=== PATIENT | female | born 1990 | race Caucasian/White ===

== ENCOUNTER → 2021-12-24 | Outpatient (CLI) | payer OTHER ==
--- NOTE | 2021-12-24 18:26 | Diagnostic Imaging Report ---
EXAMINATION: Chest 1 view HISTORY: POSITIVE TB TEST COMPARISON: None available. FINDINGS: Heart size and pulmonary vasculature are normal. The lungs are clear without consolidation, pleural effusion, or pneumothorax. The osseous structures are intact. IMPRESSION: 1. No acute radiographic abnormality in the chest. Dictated by: Dictated on workstation # [id number]
== END ==
LOC: RAD 17:30
PROVIDERS: ATTEND Nurse Practitioner Family
DX: Z11.1 Encounter for screening for respiratory tuberculosis (principal); R76.11 Nonspecific reaction to tuberculin skin test without active tuberculosis
CPT/HCPCS: 71045

== ENCOUNTER 2022-08-11 14:03 | Emergency (ER) | payer OTHER ==
[~2022-08-11] VITALS: Ht 167.7 cm; Wt 73.0 kg
--- NOTE | 2022-08-11 14:16 | ED Lower Extremity ---
General Stated Complaint: FALL/RIGHT ANKLE INJURY Source: patient Exam Limitations: no limitations History of Present Illness Date Seen by Provider: Aug 11, 2022 Time Seen by Provider: 14:06 Initial Comments 31-year-old female presents the emergency department today for right ankle pain. She was walking and stepped in a hole that she did not see. She has pain in the medial lateral right ankle as well as her proximal right tib-fib region. No other injuries. Pain is dull throbbing worse with weightbearing and movement. Relieved by rest. She took Advil prior to arrival. Allergies and Home Medications Patient Home Medication List Home Medication List Reviewed: Yes Review of Systems Constitutional: no symptoms reported EENTM: no symptoms reported Respiratory: no symptoms reported Cardiovascular: no symptoms reported Gastrointestinal: no symptoms reported Genitourinary: no symptoms reported Musculoskeletal: joint pain Skin: no symptoms reported Psychiatric/Neurological: No Symptoms Reported Past Azfjrnq-Djvtoi-Bxncfv Hx Patient Social History Tobacco Use?: No Use of E-Cig and/or Vaping dev: No Substance use?: No Alcohol Use?: No Family Medical History Reviewed Nursing Family Hx No Pertinent Family Hx Physical Exam Vital Signs Vital Signs - First Documented 08/11/22 14:10 Temp 36.2 Pulse 58 Resp 16 B/P (MAP) 113/75 (88) Pulse Ox 99 O2 Delivery Room Air Capillary Refill : Height, Weight, BMI Height: '" Weight: lbs. oz. kg; BMI Method: General Appearance: WD/WN, no apparent distress HEENT: normal ENT inspection, pharynx normal Neck: non-tender, full range of motion, supple, normal inspection Cardiovascular: regular rate, rhythm, no edema, no gallop, no JVD, no murmur Respiratory: chest non-tender, lungs clear, normal breath sounds, no respiratory distress, no accessory muscle use Gastrointestinal: normal bowel sounds, non tender, soft, no organomegaly, no pulsatile mass Back: normal inspection, no CVA tenderness, no vertebral tenderness Legs: bilateral leg normal inspection, bilateral leg normal range of motion, bilateral leg no evidence of injury; right leg pain (Tenderness palpation right proximal fibular region. No obvious deformity. Neurovascular motor and sensory intact.) Knees: bilateral knee non-tender, bilateral knee normal inspection, bilateral knee normal range of motion Ankles: right ankle pain (Tenderness palpation right ankle medial and lateral malleolus. No obvious deformity. Neurovascular motor and sensory intact.) Feet: bilateral foot non-tender, bilateral foot normal inspection, bilateral foot normal range of motion, bilateral foot no evidence of injury Neurologic/Psychiatric: no motor/sensory deficits, alert, normal mood/affect, oriented x 3 Skin: normal color, warm/dry Progress/Results/Core Measures Results/Orders My Orders Orders - OBDULIA SONI DO Ankle, Right, 3 Views (08/11/22 14:12) Tibia/Fibula, Right, 2 Views (08/11/22 14:12) Vital Signs/I&O 08/11/22 08/11/22 14:10 14:33 Temp 36.2 Pulse 58 58 Resp 16 16 B/P (MAP) 113/75 (88) 113/75 Pulse Ox 99 99 O2 Delivery Room Air Room Air Departure Communication (Admissions) Patient declines crutches. Discharged in stable condition with supportive care Impression Primary Impression: Right ankle sprain Qualified Codes: S93.401A - Sprain of unspecified ligament of right ankle, initial encounter Disposition: 01 HOME, SELF-CARE Condition: Stable Departure-Patient Inst. Referrals: [facility] (PCP/Family) Primary Care Physician Patient Instructions: Ankle Sprain ED Add. Discharge Instructions: Ice the ankle and elevated. Use Advil and Tylenol as needed for pain. Return to the emergency department for any severe concerns. OBDULIA SONI DO Aug 11, 2022 14:16
[2022-08-11 14:33] VITALS: BP 113/75
--- NOTE | 2022-08-11 14:33 | Diagnostic Imaging Report ---
EXAMINATION: Right ankle radiographs, 3 views. COMPARISON: None. HISTORY: 31-year-old female, right ankle pain after twisting injury. FINDINGS: There is no identified acute fracture. The alignment of the ankle mortise is unremarkable. There is no tibiotalar joint effusion. There is no radiopaque foreign body. Joint spaces are well preserved. IMPRESSION: Unremarkable radiographs of the right ankle. Dictated by: Dictated on workstation # [id number]
--- NOTE | 2022-08-11 14:42 | Diagnostic Imaging Report ---
EXAMINATION: Right tibia and fibular radiographs, 2 views. COMPARISON: None. HISTORY: 31-year-old female, right tibia and fibula pain. Injury. FINDINGS: There is no identified acute fracture. There is no identified radiopaque foreign body. IMPRESSION: Unremarkable radiographs of the right tibia and fibula. Dictated by: Dictated on workstation # [id number]
== END 2022-08-11 14:33 | disposition home or self-care (01) ==
LOC: EDUNIT# 14:03 → ER 14:06
DX: S93.401A Sprain of unspecified ligament of right ankle, initial encounter (principal); W17.2XXA Fall into hole, initial encounter; Y93.01 Activity, walking, marching and hiking
CPT/HCPCS: 73590; 73610